=== PATIENT | female | born 1955 | race Caucasian/White ===

== ENCOUNTER → 2017-07-13 | Outpatient (CLI) | payer MEDICARE | END | disposition home or self-care (01) | LOC: CFH 10:22 | PROVIDERS: ATTEND Family Medicine | DX: Z12.31 Encounter for screening mammogram for malignant neoplasm of breast (principal) | CPT/HCPCS: 77067 ==

== ENCOUNTER 2017-09-11 06:31 | Emergency (ER) | payer MEDICARE ==
[~2017-09-11] VITALS: Ht 157.5 cm; Wt 62.0 kg
[2017-09-11] MEDS ORDERED: ONDANSETRON 2MG/ML, 2ML ONE (08:27)
[2017-09-11] MEDS ORDERED: LORazepam 2 MG/ML, 1ML ONE (08:28)
[2017-09-11 08:42] LABS: BASOPHILS # (AUTO) 0.05 x10^3/uL (0-0.1); BASOPHILS % (AUTO) 0 % (0-1); EOSINOPHILS # (AUTO) 0.01 x10^3/uL (0-0.4); EOSINOPHILS % (AUTO) 0 % (1-7); LYMPHOCYTES % (AUTO) 6 % (22-44); MD NO; MEAN CORPUSCULAR HEMOGLOBIN 31.4 pg (27.0-34.8); MEAN CORPUSCULAR HGB CONC 33.4 g/dL (32.4-35.8); MEAN PLATELET VOLUME 10.3 fL (7.4-10.4); MONOCYTES # (AUTO) 0.77 x10^3/uL (0.2-0.8); MONOCYTES % (AUTO) 6 % (2-9); NEUTROPHILS # (AUTO) 10.85 x10^3/uL (1.8-6.8); NEUTROPHILS % (AUTO) 87 % (42-75); PLATELET COUNT 212 x10^3/uL (130-400); RED BLOOD COUNT 4.63 x10^6/uL (3.82-5.3); RED CELL DISTRIBUTION WIDTH 12.9 % (9.6-15.2)
[2017-09-11 08:50] LABS: ALANINE AMINOTRANSFERASE 20 U/L (12-78); ANION GAP 14 mmol/L (5-15); CALCIUM 9.6 mg/dL (8.5-10.1); CHLORIDE 106 mmol/L (98-107); CREATININE 0.92 mg/dL (0.55-1.02)
[2017-09-11 08:53] LABS: ALKALINE PHOSPHATASE 96 U/L (45-117); BILIRUBIN,TOTAL 0.8 mg/dL (0.2-1.0); TOTAL PROTEIN 7.7 g/dL (6.4-8.2)
[2017-09-11 09:00] LABS: TROPONIN I < 0.015 ng/mL (0.000-0.045)
[2017-09-11] MEDS ORDERED: SODIUM CHLORIDE 0.9% 1,000ML IVBOLUS ONE (09:00)
[2017-09-11] MEDS ORDERED: LORazepam 2 MG/ML, 1ML IVPush ONE (09:00)
[2017-09-11] MEDS ORDERED: ONDANSETRON 2MG/ML, 2ML IVPush ONE (09:00)
[2017-09-11] MEDS ORDERED: POTASSIUM CHLORIDE 20 MEQ TAB.ER.PRT ONE (09:15)
[2017-09-11] MEDS ORDERED: CELE100C PO (09:30)
[2017-09-11] MEDS ORDERED: SIMV10TA3 PO (09:30)
[2017-09-11] MEDS ORDERED: KETO1DRO OP (09:30)
[2017-09-11] MEDS ORDERED: DULO30CA2 PO (09:30)
[2017-09-11] MEDS ORDERED: SODIUM CHLORIDE FLUSH 10ML SYR IVF ONE (09:30)
[2017-09-11] MEDS ORDERED: LOSA50TA6 PO (09:30)
[2017-09-11] MEDS ORDERED: OMEP-110 PO (09:30)
[2017-09-11] MEDS ORDERED: OXYB5TAB7 PO (09:30)
[2017-09-11] MEDS ORDERED: POTASSIUM CHLORIDE 20 MEQ TAB.ER.PRT PO ONE (10:00)
[2017-09-11 10:47] VITALS: BP 145/82
== END 2017-09-11 10:50 | disposition home or self-care (01) ==
LOC: ED 10:22
DX: R11.2 Nausea with vomiting, unspecified (principal); F41.1 Generalized anxiety disorder; E87.6 Hypokalemia; R10.13 Epigastric pain
CPT/HCPCS: 36415; 80053; 83690; 84484; 85025; 93005; 96361; 96374; 96375; 99285; J2060; J2405; J7030

== ENCOUNTER → 2018-01-07 | Outpatient (CLI) | payer MEDICARE ==
[~2018-01-07] MED LIST: AMOX1TAB64 PO; CELE100C PO; DULO30CA2 PO; KETO1DRO OP; LOSA50TA6 PO; OMEP-110 PO; OXYB5TAB7 PO; SIMV10TA3 PO
== END | disposition home or self-care (01) ==
LOC: CFH 10:35
PROVIDERS: ATTEND Nurse Practitioner Family
DX: K80.20 Calculus of gallbladder without cholecystitis without obstruction (principal); D73.89 Other diseases of spleen; K57.30 Diverticulosis of large intestine without perforation or abscess without bleeding; K59.00 Constipation, unspecified
CPT/HCPCS: 74176